=== PATIENT | male | born 1945 | race Caucasian/White ===

== ENCOUNTER → 2016-10-05 | Outpatient (CLI) | payer MEDICARE, BC ==
[2016-10-05 19:31] LABS: Blood Urea Nitrogen 15 mg/dL (9-20); Non-African American GFR(MDRD) >60 (>60 ml/min/1.73 sqM)
--- NOTE | 2016-10-05 20:28 | CT ---
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 CT DLP: 543.0 mGycm Automated exposure control for dose reduction was used. CONTRAST: CT scan of the head is performed with IV Contrast, patient injected with 100 mL of Omnipaque 300. FINDINGS: There is a 3 cm area of hypodensity involving michelle and white matter of the right lateral frontal lobe consistent with old infarct. There is no midline shift. There is a similar 2 x 1 cm area in the righ t posterior temporal lobe consistent with old infarct. There is no midline shift. I see no pathologic enhancement. There is no hydrocephalus. The calvarium is intact. 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 No acute intracranial abnormality. No yue nge compared to last exam.
--- NOTE | 2016-10-05 20:36 | CT ---
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 CT DLP: 543.0 mGycm Automated exposure control for dose reduction was used. CONTRAST: CT scan of the neck is performed following with IV Contrast, patient injected with 100 mL of Omnipaqu e 300. Axial images are obtained, coronal and sagittal reformatted images are reviewed. FINDINGS: There is normal branching pattern of the great vessels on the aortic arch. There is some atherosclero tic vascular calcification. There is bilateral patency of the vertebral arteries. There is patency of the carotid arteries and jugular veins. Thyroid gland is symmetric. I see no cervical adenopathy. There are small metal densities at the left parotid gland consistent with previous surgery. I see no discrete parotid mass. The submandibular salivary glands are symmetric. Epiglottis appears normal. Beaulieu bglottic trachea appears normal. There is no sign of a pharyngeal mass. Left side of the tongue appea rs larger than the right and this is thought to be normal variation. I see no discrete tongue mass. IMPRESSION: There has been surgery on the left parotid gland since last exam with apparent removal o f the 2 cm soft tissue mass in the left parotid gland. I see no complicating process. Left side of th e tongue is larger than the right and should be correlated with the physical exam.
== END | disposition home or self-care (01) ==
LOC: RADCTMAIN 18:28
PROVIDERS: ATTEND Radiology Diagnostic Radiology
DX: C07 Malignant neoplasm of parotid gland (principal)
CPT/HCPCS: 82565; 84520; 70491; 70460; 36415; Q9967

== ENCOUNTER 2017-12-24 20:12 | Emergency (ER) | payer MEDICARE, BC ==
--- NOTE | 2017-12-24 20:37 | ED ---
Back Pain HPI - General Chief Complaint: Back Pain/Injury Stated Complaint: Back injury Time Seen by Provider: 12/24/17 20:26 Source: patient, RN notes reviewed Limitations: no limitations - History of Present Illness Initial Comments: This is a 72-year-old male who presents to the emergency department with chief complaint of back injury. Patient states one week ago he was coming down the stairs on a bus and his cane slipped and he fell backwards hitting the right side of his back on the steps. He states that he thought that the pain was improving but then experienced an exacerbation of the pain today. He states he has been taking Tylenol Arthritis but has decreased his dosage because his doctor told him this wasn't affecting his INR. Patient is on Coumadin and does have a pacemaker for A. fib. Patient describes the pain as a deep ache. He denies saddle paresthesias or loss of bladder or bowel function. Denies numbness or tingling. Denies fevers or chills, chest pain or shortness of breath, abdominal pain, nausea or vomiting. He denies that he other injuries or trauma. - Related Data Allergies Allergy/AdvReac Type Severity Reaction Status Date / Time No Known Allergies Allergy Verified 12/24/17 20:22 Review of Systems ROS Statement: Those systems with pertinent positive or pertinent negative responses have been documented in the HPI. ROS Other: All systems not noted in ROS Statement are negative. Past Medical History Past Medical History: Diabetes Mellitus Additional Past Medical History / Comment(s): arthritis. back pain. History of Any Multi-Drug Resistant Organisms: None Reported Past Surgical History: Pacemaker Additional Past Surgical History / Comment(s): basal cell carcinoma. cancer of carotid gland. Past Psychological History: No Psychological Hx Reported Smoking Status: Former smoker Past Alcohol Use History: Occasional Past Drug Use History: None Reported General Exam - General Exam Comments Initial Comments: General: Awake and alert, well-developed; in no apparent distress. is at bedside. HEENT: Head atraumatic, normocephalic. Pupils are equal, round and reactive to light. Extraocular movements intact. Oropharynx moist without erythema or exudate. Neck: Supple. Normal ROM. Cardiovascular: Regular rate and rhythm. No murmurs, rubs or gallops. Chest symmetrical. Pedal and posterior tibial pulses are 2+ equal and palpable bilaterally. Respiratory: Lungs clear to auscultation bilaterally. No wheezes, rales or rhonchi. Normal respiratory effort with no use of accessory muscles. Back: No vertebral bony point tenderness on palpation of cervical, thoracic or lumbar spine. No SI joint tenderness. There is tenderness on palpation of the mid posterior ribs. There is a contusion noted over the mid posterior ribs as well as one on his right hip. Sensation is intact. Musculoskeletal: Normal ROM, no tenderness bilateral upper and lower extremities. Ambulating with a cane. Skin: [place], warm and dry without rashes or lesions. Neurological: Alert and oriented x3. CN II-XII grossly intact. Speech is fluent and answers are appropriate. No focal neuro deficits. Psychiatric: Normal mood and affect. No overt signs of depression or anxiety noted. Limitations: no limitations Course Vital Signs 12/24/17 20:16 Temperature 97.3 F L Pulse Rate 86 Respiratory 16 Rate Blood Pressure 168/97 O2 Sat by Pulse 97 Oximetry Medical Decision Making - Medical Decision Making This is a 72-year-old male who presented to the emergency department with chief complaint of back injury. One week ago patient slipped while going down a set of stairs and landed on the right side of his back. Patient was tender over the posterior right ribs. X-ray was obtained and revealed evidence for minimally displaced fracture of the right 10th rib. Findings were discussed with patient. I did recommend continuing taking Tylenol and offered a prescription for [place], however patient declines. He will be discharged home with an incentive spirometer. Recommended using the incentive spirometer 10 times per hour for the next few days in order to prevent pneumonia as patient's chest x-ray didn't reveal evidence for possible pleural effusion versus infiltrate. Patient's vital signs are stable and he is in no acute distress. He will be discharged home at this time. He is in agreement with plan and voices understanding. All questions were answered. Return parameters were discussed. - Radiology Data Radiology results: report reviewed, image reviewed X-ray right ribs with PA chest impression: 1. Findings suspicious for minimally displaced fracture anterolateral margin of right 10th rib. 2. Small right pleural effusion and basilar atelectasis or early infiltrate. 3. Cardiomegaly. Disposition Clinical Impression: Rib fracture Disposition: HOME SELF-CARE Condition: Good Instructions: Rib Fracture (ED) Additional Instructions: Please use the incentive spirometer 10 times per hour for the next few days. Please follow up with primary care provider within 1-2 days. Return to emergency department if symptoms should worsen or any concerns arise. Is patient prescribed a controlled substance at d/c from ED?: No Referrals: Boo Joyce MD [Primary Care Provider] - 1-2 days Time of Disposition: 21:23
--- NOTE | 2017-12-24 20:57 | XR ---
EXAMINATION TYPE: XR ribs RT w pa chest xray DATE OF EXAM: 12/24/2017 COMPARISON: 10/05/2009 HISTORY: Right anterior lower rib pain TECHNIQUE: 1 view the chest and 4 views of the right ribs submitted. FINDINGS: Heart enlarged. Tiny right pleural effusion. No sizable pneumothorax. Cardiac device and po stoperative changes noted. Arthropathy shoulders. There is a slight cortical offset of the anterior lateral right 10th rib. IMPRESSION: 1. Findings suspicious for minimally displaced fracture anterolateral margin right 10th rib. 2. Small right pleural effusion and basilar atelectasis or early infiltrate. 3. Cardiomegaly.
[2017-12-24 21:31] VITALS: BP 150/82; PULSE 79; RESP 18; TEMP 98
== END 2017-12-24 21:31 | disposition home or self-care (01) ==
LOC: EC 20:12
DX: S22.31XA Fracture of one rib, right side, initial encounter for closed fracture (principal); S70.01XA Contusion of right hip, initial encounter; I48.91 Unspecified atrial fibrillation; Z95.0 Presence of cardiac pacemaker; Z79.01 Long term (current) use of anticoagulants; Z87.891 Personal history of nicotine dependence; V78.4XXA Person boarding or alighting from bus injured in noncollision transport accident, initial encounter
CPT/HCPCS: 99283

== ENCOUNTER → 2019-07-16 | Outpatient (CLI) | payer MEDICARE, BC ==
[2019-07-16 09:14] LABS: Basophils % (A) 1 %; Eosinophils # (A) 0.3 k/uL (0-0.7); Eosinophils % (A) 5 %; HCT 44.8 % (39.0-53.0); Lymphocytes # (A) 1.3 k/uL (1.0-4.8); Lymphocytes % (A) 22 %; MCH 30.4 pg (25.0-35.0); MCHC 33.5 g/dL (31.0-37.0); MCV 90.7 fL (80.0-100.0); Mean Platelet Volume 5.5; Monocytes # (A) 0.4 k/uL (0-1.0); Monocytes % (A) 7 %; Neutrophils # (A) 3.7 k/uL (1.3-7.7); Neutrophils % (A) 63 %; Platelet Count 199 k/uL (150-450); RBC 4.94 m/uL (4.30-5.90); RDW 13.3 % (11.5-15.5); WBC 5.9 k/uL (3.8-10.6)
[2019-07-16 18:25] LABS: T4, Free (Free Thyroxine) 1.3 ng/dL (0.80-1.80)
[2019-07-16 18:36] LABS: African American GFR (CKD) 56.2 (60.0-200.0); Albumin 4.6 g/dL (3.80-4.90); Albumin/Globulin Ratio 2.09 (1.60-3.17); BUN/Creat Ratio 19.29 Ratio (12.00-20.00); Calcium 9.9 mg/dL (8.7-10.3); Chol/HDL Ratio 5.82; Globulin 2.2 g/dL (1.6-3.3); LDL Cholesterol,Calculated 153.2 mg/dL (0.0-131.0); Non-African American GFR(CKD) 48.5 (60.0-200.0); Potassium 5.1 mmol/L (3.5-5.5); Total Bilirubin 1.4 mg/dL (0.3-1.2); Total Protein 6.8 g/dL (6.2-8.2); VLDL Calculation 29.8 mg/dL (5.00-40.00)
[2019-07-16 19:26] LABS: Hemoglobin A1C 6.4 % (4.0-6.0)
== END | disposition home or self-care (01) ==
LOC: LABWHC1 08:35
PROVIDERS: ATTEND Family Medicine
DX: Z00.00 Encounter for general adult medical examination without abnormal findings (principal); E78.5 Hyperlipidemia, unspecified; I10 Essential (primary) hypertension; E11.9 Type 2 diabetes mellitus without complications; Z12.5 Encounter for screening for malignant neoplasm of prostate
CPT/HCPCS: 84439; 80061; 80053; 84443; 85025; 83036; 36415; G0103

== ENCOUNTER → 2020-04-23 | Outpatient (CLI) | payer MEDICARE, BC ==
--- NOTE | 2020-04-23 14:53 | CT ---
EXAMINATION TYPE: CT lumbar spine wo con DATE OF EXAM: 04/23/2020 2:33 PM COMPARISON: MRI lumbar spine 01/22/2010 HISTORY: Chronic lumbar pain CT DLP: 1816.5 mGycm Automated exposure control for dose reduction was used. Unenhanced CT of the lumbar spine was performed. Bone and soft tissue window settings are submitted as well as coronal and sagittal reconstructions. Bilateral renal cysts are noted. There is aortic loren cification seen some eccentrically likely related to calcified plaque. Aortic stenosis not excluded. Diverticulosis of the colon. Catheter or lead within the heart noted. L1-L2: Severe degenerative disc disease with vacuum disc and hypertrophic spurring. No obvious canal stenosis. Neural foramina are patent. L2-L3: Severe degenerative disc disease. Broad-based central disc bulging with mild effacement of the loren sac. Borderline to mild central stenosis. L3-L4: Mild generalized degenerative change. Neural foramina patent. No Canal stenosis. Mild central disc bulging. Mild effacement of thecal sac. L4-L5: Severe degenerative disc disease with broad-based disc bulging or protrusion. There is facet a rthropathy. A borderline to mild canal stenosis and mild bilateral foraminal encroachment. L5-S1: There is bilateral spondylolysis of L5. No obvious disc herniation. Hypertrophic change of the facets contribute to significant bilateral foraminal encroachment and minimal anterolisthesis. IMPRESSION: 1. Severe multilevel degenerative disc disease with vacuum disc at multiple levels. 2. Multilevel disc bulging most pronounced at L4-L5 with borderline to mild canal stenosis and bilate ral foraminal encroachment. 3. Bilateral spondylolysis L5-S1 with minimal anterolisthesis but significant bilateral foraminal enc roachment. 4. Atherosclerotic change of the aorta with no aneurysm. There is some eccentric calcification noted within the aorta which may represent calcified plaque rather than intimal displacement or dissection. This could be confirmed with postcontrast CT of the abdomen as clinically warranted. Report called t o the referring clinician. A [place] level critical message alert has been initiated for Jamar Cesar MD via the [employer] Critical Results System on 04/23/2020 2:48 PM. This message alert has been sent to Jamar larsen MD via the preferences provided by the clinician for the receipt of Radiology Critical Findings. Message ID [id number].
== END | disposition home or self-care (01) ==
LOC: RADCTMAIN 14:14
PROVIDERS: ATTEND Physical Medicine & Rehabilitation
DX: M48.061 Spinal stenosis, lumbar region without neurogenic claudication (principal); M43.17 Spondylolisthesis, lumbosacral region; M51.16 Intervertebral disc disorders with radiculopathy, lumbar region; M47.27 Other spondylosis with radiculopathy, lumbosacral region
CPT/HCPCS: 72131

== ENCOUNTER → 2020-05-12 | Outpatient (CLI) | payer MEDICARE, BC ==
[2020-05-12 16:14] LABS: INR 1.12 (0.90-1.11); Prothrombin Time 11.9 sec (9.9-11.9)
== END | disposition home or self-care (01) ==
LOC: LABWHC1 09:19
PROVIDERS: ATTEND Physical Medicine & Rehabilitation
DX: Z51.81 Encounter for therapeutic drug level monitoring (principal); Z79.01 Long term (current) use of anticoagulants
CPT/HCPCS: 36415; 85610

== ENCOUNTER → 2020-09-17 | Outpatient (CLI) | payer MEDICARE | END | disposition home or self-care (01) | LOC: LABWHC1 09:54 | PROVIDERS: ATTEND Physical Medicine & Rehabilitation | DX: M54.16 Radiculopathy, lumbar region (principal); M48.062 Spinal stenosis, lumbar region with neurogenic claudication; M43.06 Spondylolysis, lumbar region; M47.817 Spondylosis without myelopathy or radiculopathy, lumbosacral region; G62.9 Polyneuropathy, unspecified; Z79.01 Long term (current) use of anticoagulants; Z87.898 Personal history of other specified conditions; Z86.39 Personal history of other endocrine, nutritional and metabolic disease; Z85.858 Personal history of malignant neoplasm of other endocrine glands | CPT/HCPCS: 36415; 85610 ==

== ENCOUNTER → 2020-09-18 | Outpatient (CLI) | payer MEDICARE ==
[2020-09-18 08:15] LABS: INR 1.2 (<1.2); Prothrombin Time 12.5 sec (9.0-12.0)
== END | disposition home or self-care (01) ==
LOC: LABWHC1 07:32
PROVIDERS: ATTEND Physical Medicine & Rehabilitation
DX: Z51.81 Encounter for therapeutic drug level monitoring (principal); Z79.01 Long term (current) use of anticoagulants
CPT/HCPCS: 36415; 85610

== ENCOUNTER → 2020-09-24 | Outpatient (CLI) | payer MEDICARE ==
[2020-09-24 13:52] LABS: Anion Gap 13.4 mmol/L (4.00-12.00); BUN/Creat Ratio 13.08 Ratio (12.00-20.00); Calcium 9.8 mg/dL (8.7-10.3); Carbon Dioxide 22.6 mmol/L (21.6-31.8); Non-African American GFR(CKD) 52.6 (60.0-200.0); Potassium 4.6 mmol/L (3.5-5.5)
== END | disposition home or self-care (01) ==
LOC: LABWHC1 07:31
PROVIDERS: ATTEND Internal Medicine Interventional Cardiology
DX: I25.10 Atherosclerotic heart disease of native coronary artery without angina pectoris (principal)
CPT/HCPCS: 36415; 80048

== ENCOUNTER 2020-12-08 05:35 | Observation (INO) | payer MEDICARE ==
[2020-12-08] MEDS ORDERED: SODIUM CHLORIDE 0.9% 500 ML 500 ML IV STA (05:41)
[2020-12-08] MEDS ORDERED: ONDANSETRON 4 MG/2 ML VIAL IVP STA (05:41)
[2020-12-08] MEDS ORDERED: PANTOPRAZOLE 40 MG/10 ML VIAL IVP STA (05:41)
[2020-12-08] MEDS ORDERED: SODIUM CHLORIDE 0.9% 1,000 ML IV STA (05:41)
--- NOTE | 2020-12-08 05:42 | ED ---
GI Bleed HPI - General Stated complaint: Rectal Bleeding Time Seen by Provider: 12/08/20 05:41 Source: RN notes reviewed, old records reviewed Limitations: no limitations - History of Present Illness Initial comments: This is a 75-year-old male DF for evaluation patient resents of bloody bowel movements blood in his stool bright red blood on Coumadin. Patient denying abdominal pain does not feel lightheaded dizzy or weak. No prior history of GI bleed. Vomiting no vomiting of blood. MD complaint: blood on toilet paper, gross hematochezia -: hour(s) Radiation: none Quality: painless Consistency: constant Improves with: none Worsens with: bowel movement Context: blood thinners Associated Symptoms: denies other symptoms - Related Data Home Medications Medication Instructions Recorded Confirmed ALPRAZolam [Xanax] 0.5 mg PO BID PRN 12/08/20 12/08/20 Acetaminophen [Tylenol Arthritis] 650 mg PO Q8H PRN 12/08/20 12/08/20 Ascorbic Acid [Vitamin C] 1,000 mg PO DAILY 12/08/20 12/08/20 Aspirin 81 mg PO DAILY 12/08/20 12/08/20 Calcium Carbonate [Calcium] 600 mg PO DAILY 12/08/20 12/08/20 Cholecalciferol (Vitamin D3) 125 mcg PO DAILY 12/08/20 12/08/20 [Vitamin D3 (5000 Iu)] Clopidogrel Bisulfate [Plavix] 75 mg PO DAILY 12/08/20 12/08/20 Fish Oil 1360mg 1,360 mg PO DAILY 12/08/20 12/08/20 Magnesium Oxide 400 mg PO DAILY 12/08/20 12/08/20 Metoprolol Tartrate 25 mg PO BID 12/08/20 12/08/20 Metoprolol Tartrate [Lopressor] 50 mg PO BID 12/08/20 12/08/20 Rosuvastatin [Crestor] 20 mg PO DAILY 12/08/20 12/08/20 Spironolactone [Aldactone] 25 mg PO Q48H 12/08/20 12/08/20 Vitamin B Complex 1 cap PO DAILY 12/08/20 12/08/20 Vitamin E 400 unit PO DAILY 12/08/20 12/08/20 Warfarin [Coumadin] 2.5 mg PO MOWEFR 12/08/20 12/08/20 Warfarin [Coumadin] 5 mg PO SUTUTHSA 12/08/20 12/08/20 Zinc 50 mg PO DAILY 12/08/20 12/08/20 lisinopriL [Zestril] 2.5 mg PO DAILY 12/08/20 12/08/20 metFORMIN HCL 1,000 mg PO BID 12/08/20 12/08/20 traMADol HCL [Ultram] 50 mg PO Q6HR PRN 12/08/20 12/08/20 Allergies Allergy/AdvReac Type Severity Reaction Status Date / Time No Known Allergies Allergy Verified 12/08/20 07:03 Review of Systems ROS Statement: Those systems with pertinent positive or pertinent negative responses have been documented in the HPI. ROS Other: All systems not noted in ROS Statement are negative. Past Medical History Past Medical History: Diabetes Mellitus Additional Past Medical History / Comment(s): arthritis. back pain. History of Any Multi-Drug Resistant Organisms: None Reported Past Surgical History: Pacemaker Additional Past Surgical History / Comment(s): basal cell carcinoma. cancer of carotid gland. Past Psychological History: No Psychological Hx Reported Past Alcohol Use History: Occasional Past Drug Use History: None Reported General Exam General appearance: alert, in no apparent distress Head exam: Present: atraumatic, normocephalic, normal inspection Eye exam: Present: normal appearance, PERRL, EOMI. Absent: scleral icterus, conjunctival injection, periorbital swelling ENT exam: Present: normal exam, mucous membranes moist Neck exam: Present: normal inspection. Absent: tenderness, meningismus, lymphadenopathy Respiratory exam: Present: normal lung sounds bilaterally. Absent: respiratory distress, wheezes, rales, rhonchi, stridor Cardiovascular Exam: Present: regular rate, normal rhythm, normal heart sounds. Absent: systolic murmur, diastolic murmur, rubs, gallop, clicks GI/Abdominal exam: Present: soft, normal bowel sounds. Absent: distended, tenderness, guarding, rebound, rigid Extremities exam: Present: normal inspection, full ROM, normal capillary refill. Absent: tenderness, pedal edema, joint swelling, calf tenderness Back exam: Present: normal inspection Neurological exam: Present: alert, oriented X3, CN II-XII intact Psychiatric exam: Present: normal affect, normal mood Skin exam: Present: warm, dry, intact, normal color. Absent: rash Course Vital Signs 12/08/20 12/08/20 12/08/20 05:38 05:43 06:25 Temperature 97.4 F L Pulse Rate 85 70 Respiratory 16 18 Rate Blood Pressure 154/110 140/90 O2 Sat by Pulse 95 97 Oximetry 12/08/20 12/08/20 12/08/20 07:14 10:52 12:29 Temperature Pulse Rate 71 70 78 Respiratory 18 18 18 Rate Blood Pressure 134/85 112/71 135/94 O2 Sat by Pulse 93 L 97 97 Oximetry 12/08/20 12/08/20 12/08/20 13:53 16:36 18:20 Temperature 98.8 F 98.1 F Pulse Rate 70 99 92 Respiratory 18 18 18 Rate Blood Pressure 122/86 163/95 154/98 O2 Sat by Pulse 98 99 97 Oximetry - Reevaluation(s) Reevaluation #1: Medical record is reviewed Symptoms improved here in the ER Patient informed of results and questions answered No recurrent bloody bowel movements here in the ER Medical Decision Making - Medical Decision Making 75 male DF for evaluation of bright red blood per rectum 2 on Coumadin. Patient will be admitted for trending of hemoglobin, at this time throat ER stay there is been no blood per rectum so we'll not reverse patient's Coumadin level - Lab Data Result diagrams: 12/09/20 08:53 12/08/20 05:49 Lab Results 12/08/20 12/08/20 12/08/20 Range/Units 05:49 05:49 05:49 WBC 6.3 (3.8-10.6) k/uL RBC 4.77 (4.30-5.90) m/uL Hgb 13.9 (13.0-17.5) gm/dL Hct 43.0 (39.0-53.0) % MCV 90.2 (80.0-100.0) fL MCH 29.2 (25.0-35.0) pg MCHC 32.4 (31.0-37.0) g/dL RDW 14.6 (11.5-15.5) % Plt Count 246 (150-450) k/uL MPV 6.8 Neutrophils % 53 % Lymphocytes % 27 % Monocytes % 8 % Eosinophils % 6 % Basophils % 2 % Neutrophils # 3.3 (1.3-7.7) k/uL Lymphocytes # 1.7 (1.0-4.8) k/uL Monocytes # 0.5 (0-1.0) k/uL Eosinophils # 0.4 (0-0.7) k/uL Basophils # 0.1 (0-0.2) k/uL Hypochromasia Slight PT 32.5 H (9.0-12.0) sec INR 3.4 H (<1.2) APTT 35.0 H (22.0-30.0) sec Sodium 136 L (137-145) mmol/L Potassium 4.8 (3.5-5.1) mmol/L Chloride 103 (98-107) mmol/L Carbon Dioxide 25 (22-30) mmol/L Anion Gap 8 mmol/L BUN 19 (9-20) mg/dL Creatinine 1.22 (0.66-1.25) mg/dL Est GFR (CKD-EPI)AfAm 66 (>60 ml/min/1.73 sqM) Est GFR (CKD-EPI)NonAf 57 (>60 ml/min/1.73 sqM) Glucose 139 H (74-99) mg/dL Calcium 9.5 (8.4-10.2) mg/dL Magnesium 1.7 (1.6-2.3) mg/dL Total Bilirubin 1.0 (0.2-1.3) mg/dL AST 45 (17-59) U/L ALT 31 (4-49) U/L Alkaline Phosphatase 62 (38-126) U/L Ammonia (<30) umol/L Troponin I (0.000-0.034) ng/mL Total Protein 6.8 (6.3-8.2) g/dL Albumin 3.9 (3.5-5.0) g/dL Lipase 568 H (23-300) U/L 12/08/20 12/08/20 Range/Units 05:49 05:49 WBC (3.8-10.6) k/uL RBC (4.30-5.90) m/uL Hgb (13.0-17.5) gm/dL Hct (39.0-53.0) % MCV (80.0-100.0) fL MCH (25.0-35.0) pg MCHC (31.0-37.0) g/dL RDW (11.5-15.5) % Plt Count (150-450) k/uL MPV Neutrophils % % Lymphocytes % % Monocytes % % Eosinophils % % Basophils % % Neutrophils # (1.3-7.7) k/uL Lymphocytes # (1.0-4.8) k/uL Monocytes # (0-1.0) k/uL Eosinophils # (0-0.7) k/uL Basophils # (0-0.2) k/uL Hypochromasia PT (9.0-12.0) sec INR (<1.2) APTT (22.0-30.0) sec Sodium (137-145) mmol/L Potassium (3.5-5.1) mmol/L Chloride (98-107) mmol/L Carbon Dioxide (22-30) mmol/L Anion Gap mmol/L BUN (9-20) mg/dL Creatinine (0.66-1.25) mg/dL Est GFR (CKD-EPI)AfAm (>60 ml/min/1.73 sqM) Est GFR (CKD-EPI)NonAf (>60 ml/min/1.73 sqM) Glucose (74-99) mg/dL Calcium (8.4-10.2) mg/dL Magnesium (1.6-2.3) mg/dL Total Bilirubin (0.2-1.3) mg/dL AST (17-59) U/L ALT (4-49) U/L Alkaline Phosphatase (38-126) U/L Ammonia 35 H (<30) umol/L Troponin I <0.012 (0.000-0.034) ng/mL Total Protein (6.3-8.2) g/dL Albumin (3.5-5.0) g/dL Lipase (23-300) U/L - EKG Data -: EKG Interpreted by Me (EKG is paced rate 78 QRS 80 QTc 524) Disposition Clinical Impression: Lower gastrointestinal hemorrhage, Coumadin toxicity Disposition: ADMITTED IP TO THIS HOSP Condition: Fair Is patient prescribed a controlled substance at d/c from ED?: No
[2020-12-08 05:58] LABS: Basophils # (A) 0.1 k/uL (0-0.2); Basophils % (A) 2 %; Eosinophils # (A) 0.4 k/uL (0-0.7); Eosinophils % (A) 6 %; HGB 13.9 gm/dL (13.0-17.5); Hypochromasia Slight; Lymphocytes # (A) 1.7 k/uL (1.0-4.8); Lymphocytes % (A) 27 %; MCH 29.2 pg (25.0-35.0); MCHC 32.4 g/dL (31.0-37.0); MCV 90.2 fL (80.0-100.0); Mean Platelet Volume 6.8; Monocytes # (A) 0.5 k/uL (0-1.0); Monocytes % (A) 8 %; Neutrophils # (A) 3.3 k/uL (1.3-7.7); Neutrophils % (A) 53 %; Platelet Count 246 k/uL (150-450); RBC 4.77 m/uL (4.30-5.90); RDW 14.6 % (11.5-15.5); WBC 6.3 k/uL (3.8-10.6)
[2020-12-08 06:13] LABS: INR 3.4 (<1.2); Prothrombin Time 32.5 sec (9.0-12.0)
[2020-12-08 06:16] LABS: Albumin 3.9 g/dL (3.5-5.0); Calcium 9.5 mg/dL (8.4-10.2); Magnesium 1.7 mg/dL (1.6-2.3); Potassium 4.8 mmol/L (3.5-5.1); Total Protein 6.8 g/dL (6.3-8.2)
[2020-12-08 13:12] LABS: HCT 38.2 % (39.0-53.0); HGB 12.4 gm/dL (13.0-17.5); MCH 29.6 pg (25.0-35.0); MCHC 32.4 g/dL (31.0-37.0); MCV 91.3 fL (80.0-100.0); RBC 4.18 m/uL (4.30-5.90); RDW 14.7 % (11.5-15.5); WBC 4.6 k/uL (3.8-10.6)
[2020-12-08 13:13] LABS: Basophils # (A) 0.1 k/uL (0-0.2); Basophils % (A) 1 %; Eosinophils # (A) 0.3 k/uL (0-0.7); Eosinophils % (A) 5 %; Hypochromasia Slight; Lymphocytes # (A) 1.1 k/uL (1.0-4.8); Lymphocytes % (A) 23 %; Mean Platelet Volume 6.9; Monocytes # (A) 0.4 k/uL (0-1.0); Monocytes % (A) 9 %; Neutrophils # (A) 2.7 k/uL (1.3-7.7); Neutrophils % (A) 57 %; Platelet Count 179 k/uL (150-450)
[2020-12-08] MEDS ORDERED: ALPRAZolam 0.5 MG TAB PO PRN (20:12)
[2020-12-08 20:13] LABS: Glucose,Whole Blood 127 mg/dL (75-99)
[2020-12-09] MEDS ORDERED: SPIRONOLACTONE 25 MG TAB PO SCH (08:00)
[2020-12-09 08:19] LABS: Glucose,Whole Blood 108 mg/dL (75-99)
[2020-12-09] MEDS: CHOLECALCIFEROL 25 MCG (1000 IU) TABLET PO SCH (08:32)
[2020-12-09] MEDS: ASCORBIC ACID 500 MG TAB PO SCH (08:32)
[2020-12-09] MEDS: METOPROLOL TARTRATE 25 MG TAB PO SCH ×2 (08:32→20:21)
[2020-12-09] MEDS: ATORVASTATIN 40 MG TAB PO SCH (08:33)
[2020-12-09] MEDS: CALCIUM CARBONATE 500 MG CHEWABLE PO SCH (08:33)
--- NOTE | 2020-12-09 08:49 | P.HPIM ---
History of Present Illness H&P Date: 12/09/20 Chief Complaint: GIB The patient is a 75-year-old white male with known history of coronary artery disease hypertension and diabetes who, several days ago was having rectal bl eeding and supposedly melanoma. The patient was starting to become weak and alarmed and is now admitted for GI bleeding. No hemoptysis stated. No previous history of peptic ulcer disease or diverticular bleeding stated. No abdominal trauma stated. Sugars fairly well controlled on outpatient basis. Review of Systems Constitutional: Denies chills, Denies fever Eyes: denies blurred vision, denies pain Ears, nose, mouth and throat: Denies headache, Denies sore throat Cardiovascular: Denies chest pain, Denies shortness of breath Respiratory: Denies cough Gastrointestinal: Reports as per HPI Musculoskeletal: Denies myalgias Integumentary: Denies pruritus, Denies rash Neurological: Denies numbness, Denies weakness Past Medical History Past Medical History: Diabetes Mellitus Additional Past Medical History / Comment(s): arthritis. back pain. History of Any Multi-Drug Resistant Organisms: None Reported Past Surgical History: Heart Catheterization With Stent, Pacemaker Additional Past Surgical History / Comment(s): basal cell carcinoma. cancer of carotid gland. Date of Last Stent Placement:: 2020 Type of Cardiac Device: Unknown Device Placement Date:: 2015 Past Psychological History: No Psychological Hx Reported Smoking Status: Former smoker Past Alcohol Use History: Occasional Past Drug Use History: None Reported Medications and Allergies Home Medications Medication Instructions Recorded Confirmed Type ALPRAZolam [Xanax] 0.5 mg PO BID PRN 12/08/20 12/08/20 History Acetaminophen [Tylenol Arthritis] 650 mg PO Q8H PRN 12/08/20 12/08/20 History Ascorbic Acid [Vitamin C] 1,000 mg PO DAILY 12/08/20 12/08/20 History Aspirin 81 mg PO DAILY 12/08/20 12/08/20 History Calcium Carbonate [Calcium] 600 mg PO DAILY 12/08/20 12/08/20 History Cholecalciferol (Vitamin D3) 125 mcg PO DAILY 12/08/20 12/08/20 History [Vitamin D3 (5000 Iu)] Clopidogrel Bisulfate [Plavix] 75 mg PO DAILY 12/08/20 12/08/20 History Fish Oil 1360mg 1,360 mg PO DAILY 12/08/20 12/08/20 History Magnesium Oxide 400 mg PO DAILY 12/08/20 12/08/20 History Metoprolol Tartrate 25 mg PO BID 12/08/20 12/08/20 History Metoprolol Tartrate [Lopressor] 50 mg PO BID 12/08/20 12/08/20 History Rosuvastatin [Crestor] 20 mg PO DAILY 12/08/20 12/08/20 History Spironolactone [Aldactone] 25 mg PO Q48H 12/08/20 12/08/20 History Vitamin B Complex 1 cap PO DAILY 12/08/20 12/08/20 History Vitamin E 400 unit PO DAILY 12/08/20 12/08/20 History Warfarin [Coumadin] 2.5 mg PO MOWEFR 12/08/20 12/08/20 History Warfarin [Coumadin] 5 mg PO SUTUTHSA 12/08/20 12/08/20 History Zinc 50 mg PO DAILY 12/08/20 12/08/20 History lisinopriL [Zestril] 2.5 mg PO DAILY 12/08/20 12/08/20 History metFORMIN HCL 1,000 mg PO BID 12/08/20 12/08/20 History traMADol HCL [Ultram] 50 mg PO Q6HR PRN 12/08/20 12/08/20 History Allergies Allergy/AdvReac Type Severity Reaction Status Date / Time No Known Allergies Allergy Verified 12/08/20 07:03 Physical Exam Vitals: Vital Signs Temp Pulse Pulse Resp BP BP Pulse Ox 12/09/20 07:00 97.4 F L 50 L 18 150/82 96 12/09/20 02:00 97.5 F L 86 18 144/84 95 12/08/20 20:00 97.7 F 97 18 173/104 96 12/08/20 19:20 150/85 12/08/20 18:20 98.1 F 92 18 154/98 97 12/08/20 16:36 99 18 163/95 99 12/08/20 13:53 98.8 F 70 18 122/86 98 12/08/20 12:29 78 18 135/94 97 12/08/20 10:52 70 18 112/71 97 Intake and Output 12/08/20 12/09/20 12/09/20 22:59 06:59 14:59 Other: Voiding Method Toilet Toilet # Voids 1 3 Weight 92.533 kg - Constitutional General appearance: cooperative, no acute distress - EENT Eyes: EOMI - Neck Neck: no lymphadenopathy - Respiratory Respiratory: bilateral: CTA - Cardiovascular Rhythm: regular Heart sounds: normal: S1, S2 Abnormal Heart Sounds: no S3 Gallop - Gastrointestinal General gastrointestinal: soft, no tenderness - Neurologic Neurologic: CNII-XII intact Results CBC & Chem 7: 12/08/20 12:10 12/08/20 05:49 Labs: Abnormal Lab Results - Last 24 Hours (Table) 12/08/20 12/08/20 12/09/20 Range/Units 12:10 20:11 07:07 RBC 4.18 L (4.30-5.90) m/uL Hgb 12.4 L (13.0-17.5) gm/dL Hct 38.2 L (39.0-53.0) % POC Glucose (mg/dL) 127 H 108 H (75-99) mg/dL Assessment and Plan (1) Diabetes Current Visit: Yes Status: Acute Code(s): E11.9 - TYPE 2 DIABETES MELLITUS WITHOUT COMPLICATIONS SNOMED Code(s): 25141362 (2) CAD (coronary artery disease) Current Visit: Yes Status: Acute Code(s): I25.10 - ATHSCL HEART DISEASE OF [place] CORONARY ARTERY W/O ANG PCTRS SNOMED Code(s): 51119130 (3) Lower gastrointestinal hemorrhage Current Visit: Yes Status: Acute Code(s): K92.2 - GASTROINTESTINAL HEMORRHAGE, UNSPECIFIED SNOMED Code(s): 76919072 Plan: Check appropriate serial CBC. Consult GI. Reconcile home medications hold anticoagulants for now. We'll continue follow from a medical perspective. I suspect he would benefit from endoscopic evaluation. Prognosis is guarded otherwise.
[2020-12-09] MEDS ORDERED: METOPROLOL TARTRATE 50 MG TAB PO SCH (09:00)
[2020-12-09] MEDS ORDERED: METOPROLOL TARTRATE 25 MG TAB PO SCH (09:00)
[2020-12-09 10:03] LABS: HCT 39.2 % (39.0-53.0); HGB 12.8 gm/dL (13.0-17.5); Hypochromasia Slight; MCH 29.4 pg (25.0-35.0); MCHC 32.7 g/dL (31.0-37.0); MCV 89.8 fL (80.0-100.0); Mean Platelet Volume 6.8; Platelet Count 210 k/uL (150-450); RBC 4.37 m/uL (4.30-5.90); RDW 14.5 % (11.5-15.5); WBC 5.7 k/uL (3.8-10.6)
[2020-12-09 10:10] LABS: INR 2.9 (<1.2); Prothrombin Time 27.7 sec (9.0-12.0)
[2020-12-09 11:23] LABS: Glucose,Whole Blood 116 mg/dL (75-99)
[2020-12-09] MEDS: INSULIN ASPART (NovoLOG) 100 UNIT/ML VIAL SQ SCH ×3 (12:14→20:21)
[2020-12-09 15:19] LABS: Hemoglobin A1C 7.2 % (4.0-6.0)
[2020-12-09 17:17] LABS: Glucose,Whole Blood 187 mg/dL (75-99)
--- NOTE | 2020-12-09 19:41 | CONS ---
CONSULTATION DATE OF DICTATION: 12/09/2020 REASON FOR CONSULTATION: Rectal bleeding. HISTORY OF PRESENT ILLNESS: The patient is a 75-year-old pleasant white male with history of hypertension, diabetes mellitus, coronary artery disease, status post stent placement in November of this year, presently on aspirin and Plavix as well as Coumadin. He came to the emergency room after having an episode of rectal bleeding that happened yesterday morning. He was trying to urinate and he started having dripping down his legs with bright red blood per rectum. The patient's thinks it was a significant amount of bleeding, became concerned, and brought him to the emergency room. He did not have any further episodes of bleeding since being in the hospital. The patient did have a colonoscopy about 5 or [address] Vogel, and according to them it showed diverticulosis but no polyps. Presently the Coumadin is on hold and so are aspirin and Plavix. He denies any abdominal pain. No nausea, no vomiting. PAST MEDICAL HISTORY: Significant for diabetes mellitus, hypertension, hyperlipidemia, history of degenerative joint disease, diabetes mellitus. MEDICATIONS: Medications at home include Coumadin, Crestor, Zestril, metoprolol, Aldactone, Plavix, metformin, Ultram, Xanax, vitamin C, aspirin, magnesium oxide, zinc, Tylenol Arthritis. ALLERGIES: NO KNOWN DRUG ALLERGIES. SOCIAL HISTORY: No smoking. No alcohol use. FAMILY HISTORY: Unremarkable. 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 History of skin cancer, pacemaker implantation, colonoscopy 6 years ago. REVIEW OF SYSTEMS: CARDIOPULMONARY: No chest pain or shortness of breath. GENITOURINARY: No dysuria or hematuria. MUSCULOSKELETAL: Unremarkable. SKIN: Unremarkable. ENDOCRINE: Unremarkable. PSYCHIATRIC: Unremarkable. NEUROLOGY: Unremarkable. ENT/VISION: Unremarkable. CONSTITUTIONAL: No recent weight loss. No fever, chills, night sweats. PHYSICAL EXAMINATION: Blood pressure is 150/82, pulse rate 50, temperature 97.4. HEENT examination unremarkable. Conjunctivae pink. Sclerae anicteric. Oral cavity no lesions. NECK: No JVD or lymph node enlargement. CHEST: Clear to auscultation. HEART: Regular rate and rhythm. ABDOMEN: Soft. Bowel sounds are positive. No organomegaly. EXTREMITIES: No pedal edema. NEUROLOGIC: Alert and oriented x3. No focal deficits. LABS: WBC 6.3, hemoglobin 13.9, platelets normal. INR was 3.4. Today hemoglobin is down to 12.8. INR is 2.9. AST, ALT, T-bilirubin and alkaline phosphatase are all within normal limits. Lipase is 568. Coronavirus PCR is negative. IMPRESSION: 1. Rectal bleeding; one episode that happened yesterday. The patient had a significant amount of bright red blood per rectum which since has subsided. He had no further bleeding or bowel movements since being in the hospital. The patient is on Coumadin for atrial fibrillation, currently on hold. Hemoglobin stable at 12.8 g/dL. 2. Atrial fibrillation, on Coumadin, currently on hold. 3. History of coronary artery disease, status post stent placement a month ago, presently on aspirin and Plavix, which are being held. 4. History of diabetes mellitus. 5. History of hypertension and hyperlipidemia. RECOMMENDATIONS: 1. Continue with a clear liquid diet. 2. Monitor CBC daily. 3. Hold Coumadin for now. 4. I had a lengthy discussion with the patient as well as his at the bedside. At this time, if he has no further bleeding, we can continue with the conservative approach, advance diet as tolerated tomorrow and he can be discharged home. However, if he has active bleeding, will consider colonoscopy during this hospitalization. The family is agreeable with this plan. We will follow with you closely. Thank you for this consultation. BRITTNEY / HERIBERTO: [id number] /
[2020-12-09 20:10] LABS: Glucose,Whole Blood 219 mg/dL (75-99)
[2020-12-10 07:45] LABS: Glucose,Whole Blood 102 mg/dL (75-99)
[2020-12-10 08:06] VITALS: BP 168/100; PULSE 79; RESP 18; TEMP 97.8
--- NOTE | 2020-12-10 08:25 | P.DS ---
Providers Date of admission: 12/08/20 06:51 Attending physician: Boo Joyce Consults: 12/08/20 06:51 Consult Physician Routine Consulting Provider: Vitaly Rondon Consult Reason/Comments: gib Do you want consulting provider notified?: Yes Primary care physician: Boo Joyce - Discharge Diagnosis(es) (1) Diabetes Current Visit: Yes Status: Acute (2) CAD (coronary artery disease) Current Visit: Yes Status: Acute (3) Lower gastrointestinal hemorrhage Current Visit: Yes Status: Acute Hospital Course: This is a discharge summary 75-year-old white male essentially admitted for GI bleeding. Endoscopy did not show significant active pathology. He is tolerating clear liquid diet and will be discharged once cleared by gastroenterology. The patient is stable and will follow-up with me in about 3-4 days Patient Condition at Discharge: Fair Plan - Discharge Summary New Discharge Prescriptions: Continue Fish Oil 1360mg 1,360 mg PO DAILY RX: ALPRAZolam [Xanax] 0.5 mg PO BID PRN PRN Reason: Anxiety RX: traMADol HCL [Ultram] 50 mg PO Q6HR PRN PRN Reason: Pain RX: Spironolactone [Aldactone] 25 mg PO Q48H RX: Metoprolol Tartrate 25 mg PO BID RX: Rosuvastatin [Crestor] 20 mg PO DAILY RX: Acetaminophen [Tylenol Arthritis] 650 mg PO Q8H PRN PRN Reason: Pain RX: Zinc 50 mg PO DAILY RX: Magnesium Oxide 400 mg PO DAILY RX: Calcium Carbonate [Calcium] 600 mg PO DAILY RX: Vitamin E 400 unit PO DAILY RX: Vitamin B Complex 1 cap PO DAILY RX: Cholecalciferol (Vitamin D3) [Vitamin D3 (5000 Iu)] 125 mcg PO DAILY RX: Aspirin 81 mg PO DAILY RX: Ascorbic Acid [Vitamin C] 1,000 mg PO DAILY RX: metFORMIN HCL 1,000 mg PO BID RX: Clopidogrel Bisulfate [Plavix] 75 mg PO DAILY RX: Metoprolol Tartrate [Lopressor] 50 mg PO BID RX: Warfarin [Coumadin] 2.5 mg PO MOWEFR RX: Warfarin [Coumadin] 5 mg PO SUTUTHSA RX: lisinopriL [Zestril] 2.5 mg PO DAILY Discharge Medication List Fish Oil 1360mg 1,360 mg PO DAILY 12/08/20 [History] RX: ALPRAZolam [Xanax] 0.5 mg PO BID PRN 12/08/20 [History] RX: Acetaminophen [Tylenol Arthritis] 650 mg PO Q8H PRN 12/08/20 [History] RX: Ascorbic Acid [Vitamin C] 1,000 mg PO DAILY 12/08/20 [History] RX: Aspirin 81 mg PO DAILY 12/08/20 [History] RX: Calcium Carbonate [Calcium] 600 mg PO DAILY 12/08/20 [History] RX: Cholecalciferol (Vitamin D3) [Vitamin D3 (5000 Iu)] 125 mcg PO DAILY 12/08/20 [History] RX: Clopidogrel Bisulfate [Plavix] 75 mg PO DAILY 12/08/20 [History] RX: Magnesium Oxide 400 mg PO DAILY 12/08/20 [History] RX: Metoprolol Tartrate 25 mg PO BID 12/08/20 [History] RX: Metoprolol Tartrate [Lopressor] 50 mg PO BID 12/08/20 [History] RX: Rosuvastatin [Crestor] 20 mg PO DAILY 12/08/20 [History] RX: Spironolactone [Aldactone] 25 mg PO Q48H 12/08/20 [History] RX: Vitamin B Complex 1 cap PO DAILY 12/08/20 [History] RX: Vitamin E 400 unit PO DAILY 12/08/20 [History] RX: Warfarin [Coumadin] 2.5 mg PO MOWEFR 12/08/20 [History] RX: Warfarin [Coumadin] 5 mg PO SUTUTHSA 12/08/20 [History] RX: Zinc 50 mg PO DAILY 12/08/20 [History] RX: lisinopriL [Zestril] 2.5 mg PO DAILY 12/08/20 [History] RX: metFORMIN HCL 1,000 mg PO BID 12/08/20 [History] RX: traMADol HCL [Ultram] 50 mg PO Q6HR PRN 12/08/20 [History] Follow up Appointment(s)/Referral(s): Boo Joyce MD [Primary Care Provider] - 3 Days Discharge Disposition: HOME SELF-CARE
[2020-12-10] MEDS: ATORVASTATIN 40 MG TAB PO SCH (08:58)
[2020-12-10] MEDS: ASCORBIC ACID 500 MG TAB PO SCH (08:58)
[2020-12-10] MEDS: METOPROLOL TARTRATE 25 MG TAB PO SCH (08:58)
[2020-12-10] MEDS: CHOLECALCIFEROL 25 MCG (1000 IU) TABLET PO SCH (08:58)
[2020-12-10] MEDS: CALCIUM CARBONATE 500 MG CHEWABLE PO SCH (08:58)
[2020-12-10] MEDS: INSULIN ASPART (NovoLOG) 100 UNIT/ML VIAL SQ SCH (08:58)
== END 2020-12-10 09:59 | disposition home or self-care (01) ==
LOC: EC 05:35 → 6NMEDSUR 06:51
PROVIDERS: ADMIT Family Medicine; ATTEND Family Medicine
DX: K92.1 Melena (principal); E11.9 Type 2 diabetes mellitus without complications; I25.10 Atherosclerotic heart disease of native coronary artery without angina pectoris; F41.9 Anxiety disorder, unspecified; M19.90 Unspecified osteoarthritis, unspecified site; M54.9 Dorsalgia, unspecified; E78.5 Hyperlipidemia, unspecified; I48.91 Unspecified atrial fibrillation; I10 Essential (primary) hypertension; Z87.891 Personal history of nicotine dependence; Z87.19 Personal history of other diseases of the digestive system; Z85.820 Personal history of malignant melanoma of skin; Z85.818 Personal history of malignant neoplasm of other sites of lip, oral cavity, and pharynx; Z92.3 Personal history of irradiation; Z95.5 Presence of coronary angioplasty implant and graft; Z95.0 Presence of cardiac pacemaker; Z79.82 Long term (current) use of aspirin; Z79.02 Long term (current) use of antithrombotics/antiplatelets; Z79.899 Other long term (current) drug therapy; Z79.01 Long term (current) use of anticoagulants; Z79.84 Long term (current) use of oral hypoglycemic drugs; Z20.822 Contact with and (suspected) exposure to COVID-19
CPT/HCPCS: 96361; 96374; 96375; 99285; 36415; 80053; 82140 ×2; 83690 ×2; 83735; 84484; 85025; 85027; 85610 ×2; 85730; 83036; 87635; G0378 ×3; J2405; C9113; 93005

== ENCOUNTER → 2021-02-17 | Outpatient (CLI) | payer MEDICARE | END | disposition home or self-care (01) | CPT/HCPCS: 36415; 80051; 82565; 84520 ==

== ENCOUNTER → 2023-08-03 | Outpatient (CLI) | payer MEDICARE ==
--- NOTE | 2023-08-03 09:10 | CT ---
EXAMINATION TYPE: CT lumbar spine wo con DATE OF EXAM: 08/03/2023 COMPARISON: 04/23/2020 HISTORY: Chronic low back pain, no injury. TECHNIQUE: Contiguous axial scanning of the lumbar spine without IV contrast. Coronal and sagittal re constructions performed. CT DLP: 1783.1 mGycm Automated exposure control for dose reduction was used. FINDINGS: There is a small hiatal hernia. Pacemaker leads noted in the heart. Some emphysematous change in the lower lungs. Partially visualized large exophytic cyst posterior upper pole right kidney measuring at least 8 to 9 cm. Atherosclerotic calcifications infrarenal abdominal aorta and iliac arteries. Suspect at least modera te focal stenoses distal abdominal aorta and possibly moderate to severe left common iliac artery. DISH within the visualized lower thoracic spine extending down to the L1 level. Moderate degenerative disc disease mid to lower lumbar spine with desiccated and bulging discs. Interval placement of right-sided posterior and interbody lumbar fusion hardware L5-S1 with fixed gra de 1 anterolisthesis due to bilateral L5 pars defects. Foraminotomy change suggested on the left. Pro minent endplate irregularity at the interbody device with persistent vacuum phenomenon suggests incom plete incorporation of the interbody device. 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 Similar grade 1 retrolisthesis at L4-L5. Bulging disc here impresses on the ventral thecal sac withou t significant spinal canal stenosis. No evident canal compromise within the lumbar spine. On the right, changes result in moderate neural foraminal stenoses at L2-L3, L4-L5, and L5-S1. Mild L 3-L4. On the left, changes result in severe neuroforaminal stenosis at L5-S1, moderate to severe at L4-L5, and mild at L2-L3 and L3-L4. IMPRESSION: 1. INTERVAL PLACEMENT of right-sided L5-S1 posterior and interbody fusion. Fixed grade 1 anterolisthe sis here now with underlying L5 spondylolysis. 2. Prominent endplate irregularity and persistent vacuum phenomenon here at L5-S1 may be due to incom plete incorporation of the interbody device at this time. Follow-up can be performed. 3. Moderate multilevel degenerative disc disease. Hypertrophic facet arthropathy and Baastrup's disea se. Grade 1 retrolisthesis L4-L5 and bulging disc is similar. No evident canal compromise. 4. Variable neuroforaminal stenoses as outlined above, severe on the left L5-S1 and moderate to sever e on the left at L4-L5. 5. DISH in the visualized lower thoracic spine extending down to the L1 level.
== END | disposition home or self-care (01) ==
LOC: RADCTMAIN 08:13
PROVIDERS: ATTEND Family Medicine
DX: M96.0 Pseudarthrosis after fusion or arthrodesis (principal); M51.36 Other intervertebral disc degeneration, lumbar region; M47.816 Spondylosis without myelopathy or radiculopathy, lumbar region; M43.16 Spondylolisthesis, lumbar region; M99.73 Connective tissue and disc stenosis of intervertebral foramina of lumbar region
CPT/HCPCS: 72131